=== PATIENT | female | born 1975 | race Caucasian/White ===

== ENCOUNTER 2017-02-15 04:51 | Emergency (ER) | payer OTHER ==
[2017-02-15 05:05] VITALS: TEMP 98.2
--- NOTE | 2017-02-15 05:26 | EDPHY ---
H & P Stated Complaint: facial swelling/itching Source: Patient - Personal History LMP (Females 10-55): 15-21 Days Ago Current Tetanus/Diphtheria Vaccine: No - Medical/Surgical History Hx Asthma: No Hx Chronic Respiratory Disease: No Hx Diabetes: No Hx Cardiac Disease: No Hx Renal Disease: No Hx Cirrhosis: No Hx Alcoholism: No Hx HIV/AIDS: No Hx Splenectomy or Spleen Trauma: No Other PMH: PMHx: denies. PSHx: denies - Social History Smoking Status: Never smoked HPI/ROS: HPI CHIEF COMPLAINT: Facial swelling, pruritus HISTORY OF PRESENT ILLNESS: This patient very pleasant 41-year-old female, she is otherwise healthy no significant medical history does not take any daily medications. She states earlier this evening she developed a headache. She took 600 mg ibuprofen. She woke up at 3:30 a.m. in the morning with tingling to the right side of her face. Noticed her face upper and lower lips were swollen on the right side. No posterior pharynx swelling or tongue swelling. No trouble swallowing. No trouble breathing. No rash. She is unsure what caused this. She decided come the emergency room for evaluation of this. She denies any other symptoms. No nausea vomiting diarrhea no abdominal cramping. No chest pain or shortness of breath. She has never had this before. She has taken ibuprofen in the past. She can only think of this being the only exposure. She denies trauma. Past Medical History: Denies medical history Past Surgical History: Denies any recent surgery Social History: Smokes marijuana, lives in [facility], denies any daily use of alcohol or illicit drugs. Family History: Noncontributory ROS REVIEW OF SYSTEMS: A comprehensive 10 point review of systems is otherwise negative aside from elements mentioned in the history of present illness. Exam Constitutional appears well nontoxic, triage nursing summary reviewed, vital signs reviewed, awake/alert. Eyes normal conjunctivae and sclera, EOMI, PERRLA. HENT oropharynx: There is noted to be upper and lower right-sided lip swelling consistent with angioedema body sensation. Also additionally the right cheek and face are swollen. She does have poor dentition however I do not see any gumline abscess. There is no Ruiz's. Uvula is midline not edematous. Palates are normal. No posterior pharynx swelling. No stridor. No drooling. No tongue swelling. moist mucus membranes, no epistaxis, neck supple/ no meningismus, no raccoon eyes. Respiratory clear to auscultation bilaterally, normal breath sounds, no respiratory distress, no wheezing. Cardiovascular rate normal, regular rhythm, no murmur, no edema, distal pulses normal. Gastrointestinal soft, non-tender, no rebound, no guarding, normal bowel sounds, no distension, no pulsatile mass. Genitourinary no CVA tenderness. Musculoskeletal no midline vertebral tenderness, full range of motion, no calf swelling, no tenderness of extremities, no meningismus, good pulses, neurovascularly intact. Skin pink, warm, & dry, no rash, skin atraumatic. Neurologic awake, alert and oriented x 3, AAOx3, moves all 4 extremities equally, motor intact, sensory intact, CN II-XII intact, normal cerebellar, normal vision, normal speech. Psychiatric normal mood/affect. Heme/Lymph/Immune no lymphadenopathy. 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 Close monitoring. Watch for progression of symptoms. Re-evaluation: 0619AM: Did re-evaluate this patient at this time. Resting comfortably no acute distress. This been no progression of allergic reaction or urticaria or angioedema. Swallowing appropriately. She states her facial swelling is not worse. 0700AM: Patient signed over to Dr. Painting. Observe for 2 more hours. If no further progression of angioedema or allergic reaction she may go home. Prescriptions provided for Benadryl, prednisone, epinephrine autoinjector. ( Andi Barros) Constitutional: Initial Vital Signs Temperature (C) 36.8 C 02/15/17 05:01 Heart Rate 64 02/15/17 05:01 Respiratory Rate 16 02/15/17 05:01 Blood Pressure 121/71 H 02/15/17 05:01 O2 Sat (%) 97 02/15/17 05:01 O2 Delivery Mode Room Air Allergies/Adverse Reactions: No Known Allergies Allergy (Unverified 02/15/17 05:01) Home Medications: Medication Instructions Recorded EPINEPHRINE [EPIPEN] 0.3 mg IM ONCE #2 syr 02/15/17 diphenhydrAMINE [Benadryl 25 MG 25 mg PO BID #6 tab 02/15/17 (*)] predniSONE 60 mg PO DAILY #9 tab 02/15/17 Medical Decision Making Other Provider: Patient was signed out to me at 7:[address] Barros with plan for observation in the ER for another couple hours to ensure that swelling continued to improve. On re-evaluation at 10:00 a.m., the patient is comfortable and sleeping comfortably. She has some mild swelling to her lips but the patient herself states that this is improving. Plan from Dr. Jesse schilling , the patient will be discharged home. (Fred Painting) - Data Points Medications Given: Discontinued Medications Diphenhydramine HCl (Benadryl Injection) 50 mg IVP EDNOW ONE Stop: 02/15/17 05:33 Last Admin: 02/15/17 05:39 Dose: 50 mg Epinephrine HCl (Epinephrine) 0.3 mg IM EDNOW ONE Stop: 02/15/17 05:33 Last Admin: 02/15/17 05:35 Dose: 0.3 mg Famotidine (Pepcid) 20 mg IVP EDNOW ONE Stop: 02/15/17 05:33 Last Admin: 02/15/17 05:38 Dose: 20 mg Sodium Chloride (Ns) 1,000 mls @ 0 mls/hr IV ONCE ONE PRN Reason: Wide Open Stop: 02/15/17 05:33 Last Admin: 02/15/17 05:40 Dose: 1,000 mls Methylprednisolone Sodium Succinate (Solu-Medrol) 125 mg IVP EDNOW ONE Stop: 02/15/17 05:33 Last Admin: 02/15/17 05:38 Dose: 125 mg Departure - Departure Disposition: Home, Routine, Self-Care Clinical Impression: Allergic reaction Qualifiers: Encounter type: initial encounter Qualified Code(s): T78.40XA - Allergy, unspecified, initial encounter Angioedema Qualifiers: Encounter type: initial encounter Qualified Code(s): T78.3XXA - Angioneurotic edema, initial encounter Condition: Good Instructions: Urticaria (ED), Anaphylaxis (ED), Allergies (ED) Additional Instructions: 1. Watch for progression of allergic reaction. Return immediately to the emergency room if you have worsening symptoms. 2. I would take Benadryl for next 3 days. Prednisone for the next 3 days. And please carry epinephrine pen with your at all times. Referrals: UNKNOWN,NAME [Other] - As per Instructions Prescriptions: diphenhydrAMINE [Benadryl 25 MG (*)] 25 mg PO BID #6 tab EPINEPHRINE [EPIPEN] 0.3 mg IM ONCE #2 syr predniSONE 60 mg PO DAILY #9 tab
[2017-02-15] MEDS ORDERED: FAMOTIDINE 20 MG/2 ML SDV ONE (05:31)
[2017-02-15] MEDS ORDERED: methylPREDNISolone SOD SUCC 125 MG/2 ML VIAL ONE (05:31)
[2017-02-15] MEDS ORDERED: NS 1,000 ML IV ONE (05:32)
[2017-02-15] MEDS ORDERED: methylPREDNISolone SOD SUCC 125 MG/2 ML VIAL IVP ONE (05:32)
[2017-02-15] MEDS ORDERED: FAMOTIDINE 20 MG/2 ML SDV IVP ONE (05:32)
[2017-02-15 10:53] VITALS: BP 97/69; PULSE 66; RESP 19; O2SAT 97
== END 2017-02-15 10:53 | disposition home or self-care (01) ==
DX: T78.3XXA Angioneurotic edema, initial encounter (principal)
CPT/HCPCS: 96374; J0171; J1200